=== PATIENT | male | born 1935 | race Caucasian/White ===

== ENCOUNTER → 2019-04-17 | Outpatient (CLI) | payer MEDICARE, OTHER ==
--- NOTE | 2019-04-17 20:00 | Diagnostic Imaging Report ---
EXAMINATION: Magnetic resonance imaging of the right knee without intravenous contrast DATE: April 17, 2019. COMPARISON: None. INDICATION: 83-year-old male, right knee pain. TECHNIQUE: Multiplanar, multisequence non contrast enhanced MR imaging was accomplished. FINDINGS: MENISCI: There is an oblique tear involving the anterior horn, body and posterior horn of the lateral meniscus. The medial meniscus is grossly intact. LIGAMENTS AND TENDONS: The anterior and posterior cruciate ligaments are intact. The medial collateral ligament is intact. The iliotibial band, mid third lateral capsular ligament, fibular collateral ligament, biceps femoris tendon and conjoined tendon are intact. The quadriceps tendon and patella ligament are intact. JOINT: There is abnormal signal within the cartilage of the medial aspect of the lateral patellar facet without definite overlying surface defect. There is a cartilage fissure involving the mid weightbearing portion of the medial femoral condyle. There is mild thinning of the lateral compartment cartilage. There is no knee joint effusion, prominent synovitis, or identified intra-articular body. BONE: There is unremarkable bone marrow signal. Specifically, negative for fracture, osteomyelitis, osteonecrosis, or marrow replacing process. BURSAE AND SOFT TISSUES: There is a multiloculated Spring's cyst. There is edema-like signal in the medial and lateral heads of gastrocnemius muscles. There is no fatty muscle atrophy. There is a multiloculated ganglion cyst adjacent to the posterior knee joint capsule at its medial aspect measuring approximately 8 x 7 by 8mm in size. IMPRESSION: 1. Oblique tear involving the entire lateral meniscus. 2. Intact medial meniscus. 3. Intact anterior and posterior cruciate ligaments. Additional ligaments and tendons are intact. 4. Tricompartmental mild osteoarthritis. No knee joint effusion. 5. Multiloculated Spring's cyst. 6. Low-level edema in the medial and lateral heads of gastrocnemius muscles which may potentially reflect low-grade muscle strains, early denervation related signal changes and/or myositis. 7. No acute fracture, bone contusion or evidence of osteonecrosis. Dictated on workstation # [id number]
== END ==
LOC: RAD 14:25
PROVIDERS: ATTEND Nurse Practitioner
DX: M23.241 Derangement of anterior horn of lateral meniscus due to old tear or injury, right knee (principal); M23.251 Derangement of posterior horn of lateral meniscus due to old tear or injury, right knee; M17.11 Unilateral primary osteoarthritis, right knee; M71.21 Synovial cyst of popliteal space [Baker], right knee
CPT/HCPCS: 73721

== ENCOUNTER → 2020-07-14 | Outpatient (CLI) | payer MEDICARE, OTHER ==
[~2020-07-14] MED LIST: CATHETER FLUSH 10 ML SYR IV PRN; HOLD METFORMIN - RECEIVED CONTRAST 20 ML VIAL IV SCH; IOHEXOL 350 MG/ML 100 ML (OMNIPAQUE 350) VIAL IV ONE; NS 100 ML (IVPB) BAG IV ONE
--- NOTE | 2020-07-14 15:18 | Diagnostic Imaging Report ---
EXAMINATION: CT angiography of the chest. TECHNIQUE: Contrast enhanced thin section helical images were obtained through the chest with intravenous contrast timed for the optimal opacification of the arterial structures per CTA protocol. Post-processing, reconstructions and interpretation of angiographic images of the vessels was performed. 3D MIP reconstructions were performed and reviewed. All CT scans use one or more of the following dose optimizing techniques: automated exposure control, MA and/or KvP adjustment based on a patient size and exam type, or iterative reconstruction. HISTORY: Aneurysm. COMPARISON: None available. FINDINGS: The aortic root is partially obscured by motion artifact but measures up to 4.4 cm in its largest dimension. Ascending aorta measures 4.0 cm in its maximal dimension. Proximal descending aorta measures 3.9 x 3.8 cm. There is no edema or pneumonia. No pleural effusion. No pneumothorax. No suspicious nodules. Lungs are hazy due to expiratory phase of imaging. Mucus is present in the trachea. There is no axillary or supraclavicular lymphadenopathy. There is no mediastinal lymphadenopathy. Heart size is normal. There are no coronary artery calcifications. No pericardial effusion. Limited views of the upper abdomen are unremarkable. There are no suspicious osseous lesions. IMPRESSION: 1. 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 Dictated by: Dictated on workstation # [id number]
== END ==
LOC: RAD 13:33
PROVIDERS: ATTEND Internal Medicine Cardiovascular Disease
DX: I71.2 Thoracic aortic aneurysm, without rupture (principal); I10 Essential (primary) hypertension
CPT/HCPCS: 71275

== ENCOUNTER 2021-02-05 13:30 | Emergency (ER) | payer MEDICARE, OTHER ==
[2021-02-05] MEDS ORDERED: NS IV 1000 ML 1,000 ML IV STA (13:48)
[2021-02-05] MEDS ORDERED: ONDANSETRON 4 MG/2 ML (SDV) Z0FRAN IVP STA (13:48)
[2021-02-05] MEDS ORDERED: hydrALAZINE (APESOLINE) 20 MG/ML VIAL IV STA (13:50)
--- NOTE | 2021-02-05 13:52 | ED General ---
General Chief Complaint: Cardiac/General Problems Stated Complaint: BP 189/116 | N/V Source of Information: Patient, Spouse History of Present Illness Date Seen by Provider: Feb 05, 2021 Time Seen by Provider: 13:31 Initial Comments 85-year-old male presenting from physical therapy where he developed nausea and vomiting. He states that he has episodes like this where he feels like it is motion sickness. He had taken a motion sickness [id number] pill prior to physical therapy but was still feeling bad. He had the therapist do a modified program form today and he was still symptoms when he tried to go back to the vehicle to leave. The physical therapist had checked his blood pressure and it was elevated so he advised the patient to come to the emergency department. The patient had nausea and vomiting on arrival to the ED but denied any headache, vision change, chest pain, abdominal pain, numbness or tingling in his extremities. He reports that he gets episodes of motion sickness with nausea vomiting frequently but this was the first time it was someplace that a medical professional was taking his blood pressure. Severity: Moderate Modifying Factors: worse with Movement Associated Systoms: No Chest Pain, No Cough, No Diaphoresis, No Fever/Chills, No Headaches, No Loss of Appetite, No Malaise; Nausea/Vomiting; No Rash, No Seizure, No Shortness of Air, No Syncope, No Weakness Allergies and Home Medications Allergies Coded Allergies: No Known Drug Allergies (Unverified , 02/05/21) Home Medications Ondansetron 4 Mg Tab.rapdis, 4 MG PO Q6H PRN for NAUSEA/VOMITING Prescribed by: CARMELO BARNARD on 02/05/21 0157 Patient Home Medication List Home Medication List Reviewed: Yes Review of Systems Review of Systems Constitutional: No chills, No diaphoresis, No dizziness, No fever, No malaise EENTM: no symptoms reported Respiratory: no symptoms reported Cardiovascular: no symptoms reported Gastrointestinal: see HPI Genitourinary: no symptoms reported Musculoskeletal: joint pain (chronic problems in the right knee that require PT and surgery) Skin: no symptoms reported Psychiatric/Neurological: Anxiety Hematologic/Lymphatic: No Symptoms Reported Past Yjoupmd-Xcpudn-Osbjxi Hx Past Med/Social Hx: Reviewed Nursing Past Med/Soc Hx Past Medical History Respiratory: No Cardiac: Yes High Cholesterol, Hypertension Physical Exam Vital Signs Vital Signs - First Documented 02/05/21 13:35 Temp 36.8 Pulse 100 Resp 18 B/P (MAP) 189/122 (144) Pulse Ox 92 O2 Delivery Room Air Capillary Refill : Height, Weight, BMI Height: '" Weight: lbs. oz. kg; BMI Method: General Appearance: WD/WN, Moderate Distress (vomiting on arrival) HEENT: PERRL/EOMI, Pharynx Normal Neck: Full Range of Motion, Normal Inspection, Non Tender, Supple Respiratory: Chest Non Tender, Lungs Clear, Normal Breath Sounds, No Accessory Muscle Use, No Respiratory Distress Cardiovascular: Regular Rate, Rhythm, Normal Peripheral Pulses Gastrointestinal: Normal Bowel Sounds, No Pulsatile Mass, Non Tender, Soft Rectal: Deferred Extremity: Normal Capillary Refill, Other (wearing knee brace on right knee) Neurologic/Psychiatric: Alert, Oriented x3, metal mockup maker II-XII Norm as Tested Skin: Normal Color, Warm/Dry Progress/Results/Core Measures Suspected Sepsis SIRS Temperature: Pulse: Respiratory Rate: Laboratory Tests 02/05/21 13:50: White Blood Count 7.6 Blood Pressure / Mean: Laboratory Tests 02/05/21 13:50: Creatinine 1.06, INR Comment 1.1, Platelet Count 187, Total Bilirubin 0.8 Results/Orders Lab Results Laboratory Tests Test 02/05/21 13:50 02/05/21 14:49 Range/Units White Blood Count 7.6 4.3-11.0 10^3/uL Red Blood Count 5.13 4.35-5.85 10^6/uL Hemoglobin 16.2 13.3-17.7 G/DL Hematocrit 47 40-54 % Mean Corpuscular Volume 92 80-99 FL Mean Corpuscular Hemoglobin 32 25-34 PG Mean Corpuscular Hemoglobin Concent 34 32-36 G/DL Red Cell Distribution Width 13.6 10.0-14.5 % Platelet Count 187 130-400 10^3/uL Mean Platelet Volume 11.5 H 7.4-10.4 FL Immature Granulocyte % (Auto) 1 % Neutrophils (%) (Auto) 63 42-75 % Lymphocytes (%) (Auto) 26 12-44 % Monocytes (%) (Auto) 9 0-12 % Eosinophils (%) (Auto) 1 0-10 % Basophils (%) (Auto) 1 0-10 % Neutrophils # (Auto) 4.8 1.8-7.8 X 10^3 Lymphocytes # (Auto) 2.0 1.0-4.0 X 10^3 Monocytes # (Auto) 0.7 0.0-1.0 X 10^3 Eosinophils # (Auto) 0.1 0.0-0.3 10^3/uL Basophils # (Auto) 0.0 0.0-0.1 10^3/uL Immature Granulocyte # (Auto) 0.0 0.0-0.1 10^3/uL Prothrombin Time 14.0 12.2-14.7 SEC INR Comment 1.1 0.8-1.4 Activated Partial Thromboplast Time 29 24-35 SEC Sodium Level 141 135-145 MMOL/L Potassium Level 3.8 3.6-5.0 MMOL/L Chloride Level 102 98-107 MMOL/L Carbon Dioxide Level 28 21-32 MMOL/L Anion Gap 11 5-14 MMOL/L Blood Urea Nitrogen 19 H 7-18 MG/DL Creatinine 1.06 0.60-1.30 MG/DL Estimat Glomerular Filtration Rate > 60 BUN/Creatinine Ratio 18 Glucose Level 93 70-105 MG/DL Calcium Level 9.8 8.5-10.1 MG/DL Corrected Calcium 9.6 8.5-10.1 MG/DL Magnesium Level 2.0 1.6-2.4 MG/DL Total Bilirubin 0.8 0.1-1.0 MG/DL Aspartate Amino Transf (AST/SGOT) 22 5-34 U/L Alanine Aminotransferase (ALT/SGPT) 13 0-55 U/L Alkaline Phosphatase 84 40-136 U/L Troponin I < 0.30 <0.30 NG/ML Pro-B-Type Natriuretic Peptide 63.9 <75.0 PG/ML Total Protein 7.2 6.4-8.2 GM/DL Albumin 4.3 3.2-4.5 GM/DL Lipase 38 8-78 U/L Urine Color YELLOW Urine Clarity CLEAR Urine pH 7.0 5-9 Urine Specific [place] 1.015 L 1.016-1.022 Urine Protein NEGATIVE NEGATIVE Urine Glucose (UA) NEGATIVE NEGATIVE Urine Ketones NEGATIVE NEGATIVE Urine Nitrite NEGATIVE NEGATIVE Urine Bilirubin NEGATIVE NEGATIVE Urine Urobilinogen 0.2 < = 1.0 MG/DL Urine Leukocyte Esterase NEGATIVE NEGATIVE Urine RBC (Auto) NEGATIVE NEGATIVE Urine RBC NONE /HPF Urine WBC NONE /HPF Urine Squamous Epithelial Cells NONE /HPF Urine Crystals NONE /LPF Urine Bacteria NEGATIVE /HPF Urine Casts NONE /LPF Urine Mucus NEGATIVE /LPF Urine Culture Indicated NO My Orders Orders - CARMELO BARNARD MD Cbc With Automated Diff (02/05/21 13:48) Magnesium (02/05/21 13:48) Ekg Tracing (02/05/21 13:48) Comprehensive Metabolic Panel (02/05/21 13:48) Protime With Inr (02/05/21 13:48) Partial Thromboplastin Time (02/05/21 13:48) O2 (02/05/21 13:48) Monitor-Rhythm Ecg Trace Only (02/05/21 13:48) Ed Iv/Invasive Line Start (02/05/21 13:48) Lipase (02/05/21 13:48) Troponin I Fs (02/05/21 13:48) Probnp Fs (02/05/21 13:48) Ns Iv 1000 Ml (Sodium Chloride 0.9%) (02/05/21 13:48) Ondansetron Injection (Zofran Injectio (02/05/21 13:48) Ua Culture If Indicated (02/05/21 13:50) Hydralazine Injection (Apresoline Inject (02/05/21 13:50) Vital Signs/I&O 02/05/21 02/05/21 13:35 16:10 Temp 36.8 36.8 Pulse 100 98 Resp 18 18 B/P (MAP) 189/122 (144) 149/81 (144) Pulse Ox 92 94 O2 Delivery Room Air Room Air Capillary Refill : Progress Note #1: Progress Note Placed on cardiac telemetry monitoring with his reported elevated blood pressure and nausea and vomiting. Initial monitor shows sinus rhythm with a heart rate in the 90s without ectopy. Obtain labs as well as electrocardiogram and cardiac enzymes. Give IV fluids for hydration, Zofran for nausea and vomiting, 10 mg of hydralazine to help with his blood pressure. Provided his labs look fine if he has response blood pressure coming down then will likely encourage him to follow-up through the clinic as he was not having any symptoms other than the nausea and vomiting when his pressure was elevated. He denied any headache, change in his vision, chest pain, shortness of breath, abdominal pain. Differential diagnosis uncontrolled hypertension, myocardial infarction, congestive heart failure, stress reaction Progress Note #2: Progress Note Cardiac telemetry monitoring continues to show sinus rhythm without ectopy. Has heart rate did improve with treatment in the ED. Even after the hydralazine had worn off he was continuing to do well with his blood pressure and symptoms. Updated patient and family about results. Advised to check back to the clinic or talk with his manager emergency when he sees them next week about his blood p ressure. They may want him on something more than just hydrochlorothiazide. However they may want him to take medicine for his motion sickness and nausea and vomiting on a more routine basis. Counseled on follow-up and return precautions. Prescribed a few Zofran for home so he had something ODT to help with nausea and vomiting if this recurs. ECG Initial ECG Impression Date: Feb 05, 2021 Initial ECG Impression Time: 14:10 Initial ECG Rate: 90 Initial ECG Rhythm: Normal Sinus Initial ECG Comparisson: No Previous ECG Available Comment Normal sinus rhythm with a heart rate of 90 bpm. DC interval 212 ms with a prolonged DC interval. Low voltage in the precordial leads. Borderline prolonged QT interval of 396 ms and a QTc interval of [address] elevation. There is no prior tracing available for comparison. Departure Impression Primary Impression: Elevated blood pressure reading Additional Impression: Nausea and vomiting in adult patient Disposition: 01 HOME, SELF-CARE Condition: Improved Departure-Patient Inst. Decision time for Depature: 15:56 Referrals: [facility]/MARCO ANTONIO (PCP) Primary Care Physician MARY WREN (Family) Primary Care Physician Patient Instructions: Nausea and Vomiting, Adult ED, High Blood Pressure (DC), Heart Healthy Diet Add. Discharge Instructions: Check back with clinic to see if they feel you need adjustment of your blood pressure medicine. If you continue to have episodes of nausea with vomiting then get rechecked sooner. Follow up with clinic about your episodes of motion sickness causing nausea and vomiting as this may be causing your elevated blood pressure or you may need other medicine for your blood pressure if it continues to run high All discharge instructions reviewed with patient and/or family. Voiced understanding. Scripts Ondansetron (Ondansetron Odt) 4 Mg Tab.rapdis 4 MG PO Q6H PRN for NAUSEA/VOMITING for 5 Days, #20 TAB 0 Refills Prov: CARMELO BARNARD MD 02/05/21 CARMELO BARNARD MD Feb 05, 2021 13:51
[2021-02-05 14:13] LABS: BASOPHILS % (AUTO) 1 % (0-10); EOSINOPHILS # (AUTO) 0.1 10^3/uL (0.0-0.3); EOSINOPHILS % (AUTO) 1 % (0-10); HEMATOCRIT 47 % (40-54); HEMOGLOBIN 16.2 G/DL (13.3-17.7); LYMPHOCYTES % (AUTO) 26 % (12-44); MEAN CORPUSCULAR HEMOGLOBIN 32 PG (25-34); MEAN CORPUSCULAR HGB CONC 34 G/DL (32-36); MEAN CORPUSCULAR VOLUME 92 FL (80-99); MEAN PLATELET VOLUME 11.5 FL (7.4-10.4); MONOCYTES # (AUTO) 0.7 X 10^3 (0.0-1.0); MONOCYTES % (AUTO) 9 % (0-12); NEUTROPHILS # (AUTO) 4.8 X 10^3 (1.8-7.8); NEUTROPHILS % (AUTO) 63 % (42-75); PLATELET COUNT 187 10^3/uL (130-400); WHITE BLOOD COUNT 7.6 10^3/uL (4.3-11.0)
[2021-02-05 14:14] LABS: INR 1.1 (0.8-1.4)
[2021-02-05 14:31] LABS: ALANINE AMINOTRANSFERASE 13 U/L (0-55); ALBUMIN 4.3 GM/DL (3.2-4.5); ALKALINE PHOSPHATASE 84 U/L (40-136); BILIRUBIN,TOTAL 0.8 MG/DL (0.1-1.0); BUN/CREATININE RATIO 18; CALCIUM 9.8 MG/DL (8.5-10.1); CARBON DIOXIDE 28 MMOL/L (21-32); CHLORIDE 102 MMOL/L (98-107); CREATININE SERUM 1.06 MG/DL (0.60-1.30); GFR ESTIMATED > 60; GLUCOSE 93 MG/DL (70-105); POTASSIUM 3.8 MMOL/L (3.6-5.0); SODIUM 141 MMOL/L (135-145); TOTAL PROTEIN 7.2 GM/DL (6.4-8.2)
[2021-02-05 14:38] LABS: LIPASE 38 U/L (8-78)
[2021-02-05 15:01] LABS: BACTERIA,URINE NEGATIVE /HPF; BILIRUBIN,URINE NEGATIVE (NEGATIVE); CLARITY,URINE CLEAR; COLOR,URINE YELLOW; GLUCOSE, URINE (UA) NEGATIVE (NEGATIVE); KETONES,URINE NEGATIVE (NEGATIVE); LEUKOCYTE ESTERASE ,URINE NEGATIVE (NEGATIVE); NITRITE,URINE NEGATIVE (NEGATIVE); PROTEIN,URINE NEGATIVE (NEGATIVE)
[2021-02-05] MEDS ORDERED: ONDA4TAB11 PO (15:57)
[2021-02-05 16:10] VITALS: BP 149/81
== END 2021-02-05 16:10 | disposition home or self-care (01) ==
LOC: EDUNIT# 13:30 → ER FS 13:31
DX: I10 Essential (primary) hypertension (principal); R11.2 Nausea with vomiting, unspecified
CPT/HCPCS: 36415; 80053; 81000; 83690; 83735; 83880; 84484; 85025; 85610; 85730; 93005; 93041

== ENCOUNTER → 2021-03-30 | Outpatient (CLI) | payer MEDICARE, OTHER ==
[~2021-03-30] MED LIST changes: -CATHETER FLUSH 10 ML SYR IV PRN; -HOLD METFORMIN - RECEIVED CONTRAST 20 ML VIAL IV SCH; -IOHEXOL 350 MG/ML 100 ML (OMNIPAQUE 350) VIAL IV ONE; -NS 100 ML (IVPB) BAG IV ONE; +ONDA4TAB11 PO
== END ==
LOC: LAB FS 13:00
PROVIDERS: ATTEND Orthopaedic Surgery
DX: Z01.812 Encounter for preprocedural laboratory examination (principal); Z20.822 Contact with and (suspected) exposure to COVID-19
CPT/HCPCS: 87635

== ENCOUNTER 2022-06-06 11:15 | Emergency (ER) | payer MEDICARE, OTHER ==
[~2022-06-06] VITALS: Ht 167 cm; Wt 90.0 kg
[2022-06-06] MEDS ORDERED: LIDOCAINE 1% INJ 50 ML (XYLOCAINE) VIAL IJ STA (11:30)
[2022-06-06 11:37] LABS: BASOPHILS % (AUTO) 0 % (0-10); EOSINOPHILS % (AUTO) 1 % (0-10); HEMATOCRIT 43 % (40-54); HEMOGLOBIN 14.7 g/dL (13.3-17.7); LYMPHOCYTES # (AUTO) 2.2 10^3/uL (1.0-4.0); LYMPHOCYTES % (AUTO) 31 % (12-44); MEAN CORPUSCULAR HEMOGLOBIN 32 pg (25-34); MEAN CORPUSCULAR HGB CONC 34 g/dL (32-36); MEAN CORPUSCULAR VOLUME 93 fL (80-99); MEAN PLATELET VOLUME 11.1 fL (9.0-12.2); MONOCYTES # (AUTO) 0.7 10^3/uL (0.0-1.0); MONOCYTES % (AUTO) 9 % (0-12); NEUTROPHILS # (AUTO) 4.2 10^3/uL (1.8-7.8); NEUTROPHILS % (AUTO) 58 % (42-75); PLATELET COUNT 173 10^3/uL (130-400); WHITE BLOOD COUNT 7.2 10^3/uL (4.3-11.0)
[2022-06-06 11:49] LABS: INR 1.1 (0.8-1.4); PROTHROMBIN TIME PATIENT 14.6 SEC (12.2-14.7)
--- NOTE | 2022-06-06 11:59 | ED Fall/Injury ---
General Chief Complaint: Trauma-Non Activation Stated Complaint: SYNCOPAL EPISODE Nursing Triage Note: PT REPORTS HE WAS BENT OVER IN THE BATHROOM AND WHEN HE STOOD UP HE GOT DIZZY AND FELL BACK AND HIT THE BACK LEFT SIDE OF HIS HEAD ON THE BATH TUB. DENIES LOC. 2.2 CM LACERATION ON THE LEFT POSTERIOR SIDE OF HEAD. Source: patient History of Present Illness Date Seen by Provider: Jun 06, 2022 Time Seen by Provider: 11:16 Initial Comments 86-year-old male presents by EMS from home. He states that he was bent over in the bathroom looking for something and when he stood up he stood up too quickly. He got dizzy and felt like he was going to pass out. He tried to hold himself up but ended up falling and hit his head against the bathtub. This caused a laceration to the back of his scalp. There was a lot of bleeding from the laceration and his was very worried so they called EMS. He had 1 episode of nausea and vomiting after hitting his head. He was given Zofran by EMS and states he is feeling better now. He denies any other injuries and has been able to get up and walk. He denies having any chest pain or shortness of breath, abdominal pain, cough, runny nose, drainage from his ears, change in vision Location Injury Occurred: PTS HOME IN BATHROOM Occurred: just prior to arrival Severity: mild Injuries/Pain Location: head (Left occipital scalp laceration) Context: fainted Loss of Consciousness: brief (seconds) Modifying Factors: Worse With Movement Associated Symptoms (Fall): No Abdominal Pain, No Chest Pain, No Confusion, No Dizziness; Headache (Mild pain to the left occipital scalp); No Lightheadedness, No Muscle Spasms; Nausea/Vomiting (Once); No Neck Pain, No Ringing in Ears, No Seizures, No Shortness of Air, No Slurred Speech, No Trouble Walking, No Vision Changes Allergies and Home Medications Allergies Coded Allergies: No Known Drug Allergies (Unverified , 02/05/21) Patient Home Medication List Home Medication List Reviewed: Yes Ondansetron (Ondansetron Odt) 4 Mg Tab.rapdis, 4 MG PO Q6H PRN for NAUSEA/VOMITING Prescribed by: CARMELO BARNARD on 02/05/21 3227 Review of Systems Review of Systems Constitutional: No chills, No fever Eyes: Denies Blurred Vision, Denies Drainage, Denies Decreased Acuity, Denies Photophobia, Denies Vision Changes Ears, Nose, Mouth, Throat: denies ear pain, denies ear discharge, denies nose pain, denies nose discharge, denies epistaxis, denies mouth pain, denies mouth swelling Respiratory: No cough, No dyspnea on exertion, No hemoptysis, No orthopnea, No phlegm, No short of breath Cardiovascular: No chest pain, No edema, No palpitations Gastrointestinal: see HPI Genitourinary: no symptoms reported Musculoskeletal: no symptoms reported Skin: see HPI Psychiatric/Neurological: See HPI Past Atoqepo-Syfskw-Wjugra Hx Patient Social History Tobacco Use?: No Use of E-Cig and/or Vaping dev: No Substance use?: No Alcohol Use?: No Pt feels they are or have been: No Immunizations Up To Date First/Initial COVID19 Vaccinat: n/a Second COVID19 Vaccination Luc: n/a Third COVID19 Vaccination Date: n/a Seasonal Allergies Seasonal Allergies: No Past Medical History Surgeries: Yes (Stent x1, Shoulder surgery) Cardiac, Orthopedic Respiratory: No Cardiac: Yes High Cholesterol, Hypertension Neurological: No Genitourinary: No Gastrointestinal: No Musculoskeletal: No Endocrine: No HEENT: No Cancer: No Psychosocial: No Integumentary: No Blood Disorders: No Physical Exam Vital Signs Vital Signs - First Documented Capillary Refill : Less Than 3 Seconds Height, Weight, BMI Height: '" Weight: lbs. oz. kg; 32.00 BMI Method: General Appearance: WD/WN, no apparent distress HEENT: PERRL/EOMI, normal ENT inspection, TMs normal, pharynx normal, other (Negative li sign, negative raccoon sign, negative CSF otorrhea, negative CSF rhinorrhea. 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 Then using 1% plain lidocaine the wound was infiltrated with 6 mL of anesthetic. A total of 5 deepthi were used to approximate the wound edges. Wound edges were well approximated. Bleeding was controlled. Patient tolerated procedure well without any immediate complication. Counseled on follow-up and return precautions. Advised to have deepthi out in 7 to 10 days. When the friend was being cleaned there was no obvious skull fracture or step-off seen. Progress/Results/Core Measures Results/Orders Lab Results Laboratory Tests Test 06/06/22 11:25 Range/Units White Blood Count 7.2 4.3-11.0 10^3/uL Red Blood Count 4.65 4.30-5.52 10^6/uL Hemoglobin 14.7 13.3-17.7 g/dL Hematocrit 43 40-54 % Mean Corpuscular Volume 93 80-99 fL Mean Corpuscular Hemoglobin 32 25-34 pg Mean Corpuscular Hemoglobin Concent 34 32-36 g/dL Red Cell Distribution Width 13.8 10.0-14.5 % Platelet Count 173 130-400 10^3/uL Mean Platelet Volume 11.1 9.0-12.2 fL Immature Granulocyte % (Auto) 0 % Neutrophils (%) (Auto) 58 42-75 % Lymphocytes (%) (Auto) 31 12-44 % Monocytes (%) (Auto) 9 0-12 % Eosinophils (%) (Auto) 1 0-10 % Basophils (%) (Auto) 0 0-10 % Neutrophils # (Auto) 4.2 1.8-7.8 10^3/uL Lymphocytes # (Auto) 2.2 1.0-4.0 10^3/uL Monocytes # (Auto) 0.7 0.0-1.0 10^3/uL Eosinophils # (Auto) 0.0 0.0-0.3 10^3/uL Basophils # (Auto) 0.0 0.0-0.1 10^3/uL Immature Granulocyte # (Auto) 0.0 0.0-0.1 10^3/uL Prothrombin Time 14.6 12.2-14.7 SEC INR Comment 1.1 0.8-1.4 Activated Partial Thromboplast Time 29 24-35 SEC Sodium Level 140 135-145 MMOL/L Potassium Level 3.9 3.6-5.0 MMOL/L Chloride Level 104 98-107 MMOL/L Carbon Dioxide Level 28 21-32 MMOL/L Anion Gap 8 5-14 MMOL/L Blood Urea Nitrogen 18 7-18 MG/DL Creatinine 1.16 0.60-1.30 MG/DL Estimat Glomerular Filtration Rate 62 BUN/Creatinine Ratio 16 Glucose Level 100 70-105 MG/DL Calcium Level 9.0 8.5-10.1 MG/DL Corrected Calcium 9.2 8.5-10.1 MG/DL Total Bilirubin 0.4 0.1-1.0 MG/DL Aspartate Amino Transf (AST/SGOT) 25 5-34 U/L Alanine Aminotransferase (ALT/SGPT) 24 0-55 U/L Alkaline Phosphatase 71 40-136 U/L Troponin I < 0.30 <0.30 NG/ML Pro-B-Type Natriuretic Peptide 41.6 <450.0 PG/ML Total Protein 6.2 L 6.4-8.2 GM/DL Albumin 3.7 3.2-4.5 GM/DL My Orders Orders - CARMELO BARNARD MD Cbc With Automated Diff (06/06/22 11:30) Ekg Tracing (06/06/22 11:30) Comprehensive Metabolic Panel (06/06/22 11:30) Protime With Inr (06/06/22 11:30) Partial Thromboplastin Time (06/06/22 11:30) O2 (06/06/22 11:30) Monitor-Rhythm Ecg Trace Only (06/06/22 11:30) Ed Iv/Invasive Line Start (06/06/22 11:30) Troponin I Fs (06/06/22 11:30) Probnp Fs (06/06/22 11:30) Ct Head/Cervical Spine Wo (06/06/22 11:30) Lidocaine 1% Inj 50 Ml (Xylocaine 1% Inj (06/06/22 11:30) Vital Signs/I&O 06/06/22 06/06/22 06/06/22 11:20 11:20 12:40 Temp 35.9 35.9 35.9 Pulse 66 66 72 Resp 16 16 16 B/P (MAP) 166/88 (114) 168/88 (114) 142/72 Pulse Ox 97 97 98 O2 Delivery Room Air Room Air Room Air Blood Pressure Mean: 114 Progress Progress Note #1: Progress Note Clean and repair laceration to the left occipital scalp. CT scan of the head and cervical spine to look for intracranial hemorrhage or skull fracture or cervical spine fracture. Check basic labs and cardiac enzymes as well as electrocardiogram to look for arrhythmia or other reasons for the syncope. Progress Note #2: Progress Note Patient tolerated repair of the laceration well without any immediate complication. The CT scan did not show any intracranial hemorrhage or C-spine fracture. Labs are stable without acute significant abnormality. Counseled on follow-up and return precautions. Advised to have the deepthi out in 7 to 10 days. Advised to change positions slowly to give his body time to adjust Initial ECG Impression Date: Jun 06, 2022 Initial ECG Impression Time: 11:40 Initial ECG Rate: 67 Initial ECG Rhythm: Normal Sinus Comment Normal sinus rhythm with a heart rate of 67 bpm with a first-degree AV block. OR interval 226 ms. Low QRS voltage in the precordial leads. No acute ST elevation. QT interval 422 ms with a QTc interval 437 ms. Diagnostic Imaging Diagonstic Imaging: CT Plain Films/CT/US/NM/MRI: c-spine, head Comments [facility], [place] NAME: [facility] REC#: [id number] PT STATUS: DEP ER : 1935 PHYSICIAN: CARMELO BARNARD MD ADMIT DATE: 06/06/22/ER FS Signed Date of Exam:06/06/22 CT HEAD/CERVICAL SPINE WO PROCEDURE: CT head and CT cervical spine without contrast. TECHNIQUE: Multiple contiguous axial images were obtained through the brain and cervical spine without the use of intravenous contrast. Sagittal and coronal reformations through the cervical spine were then performed. Auto Exposure Controls were utilized during the CT exam to meet ALARA standards for radiation dose reduction. INDICATION: Fall with head and neck injury. No prior studies are available for comparison. CT HEAD: Ventricles and sulci are prominent consistent with cerebral volume loss. There are significant periventricular low attenuation consistent with chronic microvascular ischemia. Punctate densities in the left frontal lobe have the appearance of small calcifications. No acute intra-axial or extra-axial hemorrhage is detected. There is no midline shift or sulcal effacement. Cisterns are patent. Visualized paranasal sinuses are clear apart from opacified right-sided posterior ethmoid air cell. There is some scalp deepthi in the left posterior parietal region with small amount of subcutaneous gas. No depressed calvarial fracture is seen. IMPRESSION: Chronic and senescent changes. No acute intracranial process is detected. CT CERVICAL SPINE: There is straightening of the normal cervical lordotic curvature. There is significant multilevel degenerative disc disease with disc space narrowing and marginal spurring at all levels. The prevertebral tissues are normal. The odontoid is intact. No fractures are identified. IMPRESSION: Cervical spondylosis. No acute bony abnormality is detected. Dictated by: Dictated on workstation # [id number] Dict: 06/06/22 1202 Trans: 06/06/22 1607 CV [id number] Interpreted by: MAT MARQUES MD Electronically signed by: MAT MARQUES MD 06/06/22 160 Reviewed: Reviewed by Me Departure Impression Primary Impression: Occipital scalp laceration Qualified Codes: S01.01XA - Laceration without foreign body of scalp, initial encounter Additional Impressions: Vasovagal syncope Minor closed head injury Disposition: 01 HOME, SELF-CARE Condition: Stable Departure-Patient Inst. Decision time for Depature: 12:28 Referrals: [facility]MARCO ANTONIO (PCP) Primary Care Physician MARY WREN (Family) Primary Care Physician Patient Instructions: Laceration Repair With [facility], Minor Head Injury, Adult ED, Fainting, Adult ED Add. Discharge Instructions: Stay well hydrated and drink plenty of fluids. Keep the wound on your scalp clean and dry for 24 hours then may wash with soap or shampoo and water. Do not soak the wound. May apply antibiotic ointment once or twice a day to help with healing and help prevent infection The deepthi can be removed in 7 to 10 days by returning here to the ED or with your PCP Make sure to change positions slowly and pause for a few seconds to let your body adjust before you start moving to let your blood pressure and pulse catch up and adjust with your change in position. All discharge instructions reviewed with patient and/or family. Voiced understanding. CARMELO BARNARD MD Jun 06, 2022 11:59
--- NOTE | 2022-06-06 12:10 | Diagnostic Imaging Report ---
PROCEDURE: CT head and CT cervical spine without contrast. TECHNIQUE: Multiple contiguous axial images were obtained through the brain and cervical spine without the use of intravenous contrast. Sagittal and coronal reformations through the cervical spine were then performed. Auto Exposure Controls were utilized during the CT exam to meet ALARA standards for radiation dose reduction. INDICATION: Fall with head and neck injury. No prior studies are available for comparison. CT HEAD: Ventricles and sulci are prominent consistent with cerebral volume loss. There are significant periventricular low attenuation consistent with chronic microvascular ischemia. Punctate densities in the left frontal lobe have the appearance of small calcifications. No acute intra-axial or extra-axial hemorrhage is detected. There is no midline shift or sulcal effacement. Cisterns are patent. Visualized paranasal sinuses are clear apart from opacified right-sided posterior ethmoid air cell. There is some scalp deepthi in the left posterior parietal region with small amount of subcutaneous gas. No depressed calvarial fracture is seen. IMPRESSION: Chronic and senescent changes. No acute intracranial process is detected. CT CERVICAL SPINE: There is straightening of the normal cervical lordotic curvature. There is significant multilevel degenerative disc disease with disc space narrowing and marginal spurring at all levels. The prevertebral tissues are normal. The odontoid is intact. No fractures are identified. IMPRESSION: Cervical spondylosis. No acute bony abnormality is detected. Dictated by: Dictated on workstation # [id number]
[2022-06-06 12:12] LABS: POTASSIUM 3.9 MMOL/L (3.6-5.0)
[2022-06-06 12:14] LABS: BILIRUBIN,TOTAL 0.4 MG/DL (0.1-1.0); CREATININE SERUM 1.16 MG/DL (0.60-1.30); TOTAL PROTEIN 6.2 GM/DL (6.4-8.2)
[2022-06-06 12:15] LABS: ALBUMIN 3.7 GM/DL (3.2-4.5)
[2022-06-06 12:40] VITALS: BP 142/72
== END 2022-06-06 12:41 | disposition home or self-care (01) ==
LOC: EDUNIT# 11:15 → ER FS 11:17
DX: S06.9X9A Unspecified intracranial injury with loss of consciousness of unspecified duration, initial encounter (principal); S01.01XA Laceration without foreign body of scalp, initial encounter; R55 Syncope and collapse; Z28.310 Unvaccinated for COVID-19; W18.30XA Fall on same level, unspecified, initial encounter; W22.8XXA Striking against or struck by other objects, initial encounter; Y92.091 Bathroom in other non-institutional residence as the place of occurrence of the external cause
CPT/HCPCS: 12001; 36415; 70450; 72125; 80053; 83880; 84484; 85025; 85610; 85730; 93005; 93041

== ENCOUNTER → 2022-07-19 | Outpatient (CLI) | payer MEDICARE, OTHER ==
--- NOTE | 2022-07-19 16:23 | Diagnostic Imaging Report ---
Clinical Indication: Patient with stenosis. Exam: MRI of the cervical spine performed without IV contrast. Sequences include sagittal T1, sagittal T2, sagittal stir, axial gradient echo sequence, and axial T2. Comparison: CT scan of the head and cervical spine without contrast dated 06/06/2022. Findings: There is no acute cervical spine fracture. There are mild to moderately hypertrophic spurs involving the cervical spine. There is Modic type II degenerative signal changes seen throughout the cervical spine. Limited visualization of posterior fossa is unremarkable. There is localized deformity of the cervical cord seen at the C3-C4, C4-C5, and C5-C6 levels due to disk disease. There is no abnormal cord signal. C1-C2: There are degenerative spurs involving the atlantoodontoid interval anteriorly. There is no significant central canal stenosis. C2-C3: There is moderate left facet arthropathy and mild right facet arthropathy. There is no significant central canal stenosis. C3-C4: There is diffuse disk bulge with moderate to severe loss of disk space height. There is mild bilateral facet arthropathy. There is severe central canal stenosis and moderate central canal stenosis. C4-C5: There is diffuse disk bulge with moderate to severe loss of disk space height. There are bilateral uncinate spurs. There is ligament flavum buckling. There is mild bilateral facet arthropathy. There is severe central canal stenosis and severe bilateral neural foramen narrowing. C5-C6: There is a diffuse disk bulge and moderate to severe loss of disk space height. There are bilateral uncinate spurs and posterior disk spurs. There is mild bilateral facet arthropathy. There is severe right neural foramen narrowing and moderate to severe left neural foramen narrowing. There is severe central canal stenosis. C6-C7: There is a diffuse disk bulge with moderate loss of disk space height. There is bilateral uncinate spurs and posterior disk spurs. There is moderate central canal stenosis. There is severe left neural foramen narrowing and moderate to severe right neural foramen narrowing. C7-T1: There is a diffuse disk bulge with moderate loss of disk space height with bilateral uncinate spurs. There is moderate left facet arthropathy and mild right facet arthropathy. There is severe right neural foramen narrowing and moderate to severe left neural foramen narrowing. There is mild central canal stenosis. IMPRESSION: There is severe multilevel cervical spine degenerative disk disease which is described above. Dictated by: Dictated on workstation # [id number]
--- NOTE | 2022-07-19 16:26 | Diagnostic Imaging Report ---
TECHNIQUE: Multiplanar, multisequence MRI of the thoracic spine was performed without contrast. REASON FOR EXAM: Back pain. Stenosis. COMPARISON: 07/14/2020. FINDINGS: No acute fracture or dislocation in the thoracic spine. There is a generalized heterogeneous appearance of the bone marrow. Scattered hemangiomas are seen in the thoracic spine. No suspicious focal osseous lesions. Alignment of the thoracic spine is anatomic. The intrinsic signal within the thoracic spinal cord is normal. No evidence of cord expansion. No epidural collections. Degenerative changes are seen in the thoracic spine with posterior disc bulges and facet hypertrophy. These are greatest at the T10-T11 level resulting in mild to moderate spinal canal narrowing and gbwjmcwb-[id number] bilateral foraminal stenosis. The paraspinal soft tissues are unremarkable. IMPRESSION: 1. No acute fracture or dislocation in the thoracic spine. 2. Degenerative changes in the thoracic spine, greatest at T10-T11. 3. Generalized heterogeneous appearance of the bone marrow. No suspicious focal osseous lesions. Dictated by: Dictated on workstation # [id number]
--- NOTE | 2022-07-19 17:37 | Diagnostic Imaging Report ---
PROCEDURE: MRI lumbar spine without contrast. TECHNIQUE: Multiplanar, multisequence MRI of the lumbar spine was performed without contrast. INDICATION: Low back pain. Spinal stenosis. COMPARISON: None. FINDINGS: Five lumbar-type vertebral bodies are visualized with the last well-formed disc space designated L5-S1. No acute fracture or dislocation is seen in the lumbar spine. Alignment is anatomic. Vertebral body heights and disc spaces are well-maintained. There is a heterogeneous bone marrow signal throughout the lumbar spine. Modic type I endplate degenerative changes are present at the L2-L3 level. Modic type II endplate degenerative changes are present at the T12-L1 and L5-S1 levels. No suspicious focal osseous lesions. The conus terminates at the L1 level. No masses are seen associated with the conus or nerve roots of the cauda equina. No epidural collections are identified. Multilevel degenerative changes are seen in the lumbar spine with disc bulges, facet hypertrophy, and buckling of the ligamentum flavum. T12-L1: Broad-based disc bulge and facet hypertrophy result in mild spinal canal narrowing and moderate bilateral foraminal stenosis. L1-L2: Facet hypertrophy and buckling of the ligamentum flavum result in no significant spinal canal narrowing and moderate bilateral foraminal narrowing. L2-L3: Facet hypertrophy and buckling of the ligamentum flavum result in no significant spinal canal narrowing and moderate right and severe left foraminal stenosis. L3-L4: Broad-based disc bulge, facet hypertrophy, and buckling of the ligamentum flavum result in mild spinal canal narrowing and moderate bilateral foraminal stenosis. L4-L5: Broad-based disc bulge, facet hypertrophy, and buckling of the ligamentum flavum result in mild spinal canal narrowing and severe right and ebzjbuxb-ze-iivsyd left foraminal stenosis. L5-S1: Broad-based disc bulge, facet hypertrophy, and buckling of the ligamentum flavum result in mild spinal canal narrowing and kswlhprw-nn-jjdueo bilateral foraminal stenosis. Paravertebral soft tissues are unremarkable. IMPRESSION: 1. No acute fracture or dislocation in the lumbar spine. 2. Multilevel degenerative changes in the lumbar spine with high-grade bilateral foraminal stenosis throughout the lumbar spine. 3. Modic type I endplate degenerative changes at the L2-L3 level with Modic type II endplate degenerative changes at T12-L1 and L5-S1. Dictated by: Dictated on workstation # [id number]
== END ==
LOC: RAD 11:45
PROVIDERS: ATTEND Orthopaedic Surgery Orthopaedic Surgery of the Spine
DX: M48.061 Spinal stenosis, lumbar region without neurogenic claudication (principal); M47.816 Spondylosis without myelopathy or radiculopathy, lumbar region; M47.815 Spondylosis without myelopathy or radiculopathy, thoracolumbar region; M47.817 Spondylosis without myelopathy or radiculopathy, lumbosacral region; M47.814 Spondylosis without myelopathy or radiculopathy, thoracic region; M48.04 Spinal stenosis, thoracic region; M50.30 Other cervical disc degeneration, unspecified cervical region; M46.02 Spinal enthesopathy, cervical region; M47.812 Spondylosis without myelopathy or radiculopathy, cervical region; M50.21 Other cervical disc displacement, high cervical region; M48.02 Spinal stenosis, cervical region
CPT/HCPCS: 72141; 72146; 72148

== ENCOUNTER 2023-05-06 21:30 | Observation (INO) | payer MEDICARE, OTHER ==
[~2023-05-06] VITALS: Ht 167.7 cm; Wt 90.7 kg
[2023-05-06] MEDS ORDERED: NS IV 1000 ML 1,000 ML IV STA (21:35)
--- NOTE | 2023-05-06 21:41 | ED General ---
General Stated Complaint: fall Source of Information: Patient, EMS History of Present Illness Date Seen by Provider: May 06, 2023 Time Seen by Provider: 21:30 Initial Comments 87-year-old male presenting with complaints of weakness in his legs. He felt like he was too weak to stand and walk. He does use a walker but even with that he felt like his legs were too weak to hold him up. He denies hitting his head or losing consciousness. He states he did slide to the ground earlier and has a bruise to his right arm. He denies having any pain. He denies having any burning with urination. He admits that he does not drink much fluid and probably needs to be better hydrated. He denies fever, chills, chest pain, cough, nausea, vomiting, shortness of breath, headache, numbness or tingling in his arms or legs. He felt this weakness came on this evening around 8 PM Timing/Duration: 1-3 Hours Severity: Moderate Modifying Factors: worse with Movement (Feeling too weak to stand and walk) Associated Systoms: No Chest Pain, No Cough, No Diaphoresis, No Fever/Chills, No Headaches, No Loss of Appetite, No Malaise, No Nausea/Vomiting, No Rash, No Seizure, No Shortness of Air, No Syncope; Weakness ([place] like his legs were too weak to hold him up but has no difficulty moving his legs laying in the bed) Allergies and Home Medications Allergies Coded Allergies: No Known Drug Allergies (Unverified , 02/05/21) Patient Home Medication List Home Medication List Reviewed: Yes Ondansetron (Ondansetron Odt) 4 Mg Tab.rapdis, 4 MG PO Q6H PRN for NAUSEA/VOMITING Prescribed by: CARMELO BARNARD on 02/05/21 [id number] Review of Systems Review of Systems Constitutional: No chills, No fever; weakness (In his legs when he tries to stand or walk) EENTM: no symptoms reported Respiratory: see HPI; No short of breath Cardiovascular: No chest pain Gastrointestinal: see HPI; No abdominal pain, No nausea, No vomiting Genitourinary: No dysuria Musculoskeletal: No back pain Skin: No rash Psychiatric/Neurological: Denies Headache, Denies Numbness, Denies Weakness Hematologic/Lymphatic: Denies Blood Clots Past Wasjgba-Vuiqkd-Xwcjae Hx Immunizations Up To Date First/Initial COVID19 Vaccinat: n/a Second COVID19 Vaccination Luc: n/a Third COVID19 Vaccination Date: n/a Seasonal Allergies Seasonal Allergies: No Past Medical History Surgery/Hospitalization HX: Hypertension Surgeries: Yes (Stent x1, Shoulder surgery) Cardiac, Orthopedic Respiratory: No Cardiac: Yes High Cholesterol, Hypertension Neurological: No Genitourinary: No Gastrointestinal: No Musculoskeletal: No Endocrine: No HEENT: No Cancer: No Psychosocial: No Integumentary: No Blood Disorders: No Physical Exam Vital Signs Vital Signs - First Documented 05/06/23 21:30 Temp 36.7 Pulse 93 Resp 20 B/P (MAP) 171/101 (124) Pulse Ox 96 O2 Delivery Room Air Capillary Refill : Height, Weight, BMI Height: '" Weight: lbs. oz. kg; 32.00 BMI Method: General Appearance: No Apparent Distress, WD/WN HEENT: PERRL/EOMI, Normal ENT Inspection, Pharynx Normal Neck: Full Range of Motion, Normal Inspection, Non Tender, Supple Respiratory: Chest Non Tender, Lungs Clear, Normal Breath Sounds, No Accessory Muscle Use, No Respiratory Distress Cardiovascular: Regular Rate, Rhythm, Normal Peripheral Pulses Gastrointestinal: Normal Bowel Sounds, No Pulsatile Mass, Non Tender, Soft Rectal: Deferred Back: No CVA Tenderness, No Vertebral Tenderness Extremity: Normal Capillary Refill, Normal Inspection, Normal Range of Motion, Non Tender, No Calf Tenderness, No Pedal Edema Neurologic/Psychiatric: Alert, Oriented x3, No Motor/Sensory Deficits, Normal Mood/Affect, bellmaker II-XII Norm as Tested Skin: Normal Color, Warm/Dry Progress/Results/Core Measures Suspected Sepsis SIRS Temperature: Pulse: Respiratory Rate: Laboratory Tests 05/06/23 21:38: White Blood Count 10.0 Blood Pressure / Mean: Laboratory Tests 05/06/23 21:38: Creatinine 1.33H, INR Comment 1.0, Platelet Count 182, Total Bilirubin 0.4 Results/Orders Lab Results Laboratory Tests Test 05/06/23 21:38 05/06/23 22:30 Range/Units White Blood Count 10.0 4.3-11.0 10^3/uL Red Blood Count 4.80 4.30-5.52 10^6/uL Hemoglobin 15.2 13.3-17.7 g/dL Hematocrit 46 40-54 % Mean Corpuscular Volume 96 80-99 fL Mean Corpuscular Hemoglobin 32 25-34 pg Mean Corpuscular Hemoglobin Concent 33 32-36 g/dL Red Cell Distribution Width 14.1 10.0-14.5 % Platelet Count 182 130-400 10^3/uL Mean Platelet Volume 11.7 9.0-12.2 fL Immature Granulocyte % (Auto) 0 % Neutrophils (%) (Auto) 77 H 42-75 % Lymphocytes (%) (Auto) 15 12-44 % Monocytes (%) (Auto) 7 0-12 % Eosinophils (%) (Auto) 0 0-10 % Basophils (%) (Auto) 0 0-10 % Neutrophils # (Auto) 7.7 1.8-7.8 10^3/uL Lymphocytes # (Auto) 1.5 1.0-4.0 10^3/uL Monocytes # (Auto) 0.7 0.0-1.0 10^3/uL Eosinophils # (Auto) 0.0 0.0-0.3 10^3/uL Basophils # (Auto) 0.0 0.0-0.1 10^3/uL Immature Granulocyte # (Auto) 0.0 0.0-0.1 10^3/uL Prothrombin Time 13.8 12.2-14.7 SEC INR Comment 1.0 0.8-1.4 Activated Partial Thromboplast Time 29 24-35 SEC Sodium Level 141 135-145 MMOL/L Potassium Level 4.0 3.6-5.0 MMOL/L Chloride Level 103 98-107 MMOL/L Carbon Dioxide Level 27 21-32 MMOL/L Anion Gap 11 5-14 MMOL/L Blood Urea Nitrogen 20 H 7-18 MG/DL Creatinine 1.33 H 0.60-1.30 MG/DL Estimat Glomerular Filtration Rate 52 BUN/Creatinine Ratio 15 Glucose Level 110 H 70-105 MG/DL Calcium Level 10.0 8.5-10.1 MG/DL Corrected Calcium 10.2 H 8.5-10.1 MG/DL Magnesium Level 2.2 1.6-2.4 MG/DL Total Bilirubin 0.4 0.1-1.0 MG/DL Aspartate Amino Transf (AST/SGOT) 23 5-34 U/L Alanine Aminotransferase (ALT/SGPT) 18 0-55 U/L Alkaline Phosphatase 82 40-136 U/L Troponin I < 0.30 <0.30 NG/ML Pro-B-Type Natriuretic Peptide 59.8 <450.0 PG/ML Total Protein 6.5 6.4-8.2 GM/DL Albumin 3.8 3.2-4.5 GM/DL Urine Color YELLOW Urine Clarity CLEAR Urine pH 7.5 5-9 Urine Specific [place] 1.010 L 1.016-1.022 Urine Protein NEGATIVE NEGATIVE Urine Glucose (UA) NEGATIVE NEGATIVE Urine Ketones NEGATIVE NEGATIVE Urine Nitrite NEGATIVE NEGATIVE Urine Bilirubin NEGATIVE NEGATIVE Urine Urobilinogen 0.2 < = 1.0 MG/DL Urine Leukocyte Esterase NEGATIVE NEGATIVE Urine RBC (Auto) TRACE-I H NEGATIVE Urine RBC 2-5 H /HPF Urine WBC 0-2 /HPF Urine Crystals PRESENT H /LPF Urine Calcium Oxalate Crystals FEW H /LPF Urine Bacteria FEW H /HPF Urine Casts NONE /LPF Urine Mucus MODERATE H /LPF Urine Culture Indicated NO My Orders Orders - CARMELO BARNARD MD Cbc With Automated Diff (05/06/23 21:35) Magnesium (05/06/23 21:35) Ekg Tracing (05/06/23 21:35) Comprehensive Metabolic Panel (05/06/23 21:35) Protime With Inr (05/06/23 21:35) Partial Thromboplastin Time (05/06/23 21:35) Monitor-Rhythm Ecg Trace Only (05/06/23 21:35) Ed Iv/Invasive Line Start (05/06/23 21:35) Troponin I Fs (05/06/23 21:35) Probnp Fs (05/06/23 21:35) Ns Iv 1000 Ml (Sodium Chloride 0.9%) (05/06/23 21:35) Ua Culture If Indicated (05/06/23 21:35) Hydralazine Injection (Apresoline Inject (05/06/23 23:02) Ed Admission (Communication) (05/07/23 03:21) Vital Signs/I&O 05/06/23 05/07/23 21:30 02:15 Temp 36.7 Pulse 93 99 Resp 20 20 B/P (MAP) 171/101 (124) 157/83 Pulse Ox 96 97 O2 Delivery Room Air Room Air 05/07/23 00:00 Intake Total 1000 ml Balance 1000 ml Capillary Refill : Progress Note #1: Progress Note Potential diagnosis of dehydration, electrolyte imbalance, UTI, myocardial infarction, general muscle weakness. Obtain peripheral IV access and send labs for complete blood count, comp rehensive metabolic profile, coagulation factors, magnesium, urinalysis. Administer normal saline 1 L IV fluid bolus for hydration. His blood pressure was elevated initially at 171/101. He denies having headache, change in vision, chest pain, nausea, vomiting, shortness of breath with this. We will continue to monitor his blood pressure while he is in the ED. Progress Note #2: Time: 22:56 Progress Note On review of his labs his complete blood count shows a normal white blood cell count of 10, hemoglobin 15.2. His comprehensive metabolic profile showed sodium of 141, potassium of 4, BUN of 20, creatinine 1.33, glucose slightly elevated to 110. His magnesium was upper limit of normal at 2.2. His troponin was normal less than 0.3. proBNP was also normal at 59.8. His coagulation factors were not elevated to indicate a coagulopathy. His urinalysis showed a specific gravity of 1.010 and he had no nitrites or leukocyte esterase but he did have urine crystals calcium oxalate crystals so he might have been slightly dehydrated. His blood pressure continues to be elevated at 210/100. He is not having any other symptoms from the high blood pressure. Will add on a dose of hydralazine to see if could lower his blood pressure some. We will try to have the patient get up to walk with a walker and see if his legs are feeling any stronger after getting the liter of normal saline for hydration. Progress Note #3: Time: 23:41 Progress Note Discussed with Dr. Cheema, [facility] hospitalist, about the patient's presentation and his vital signs showing the hypertension. He did have general weakness in his legs with standing but if he was laying in the bed he had normal range of motion and was kicking his legs up in the air on the bed. He denies any recent fall to injure his back. He has no headache or head injury. He denies chest pain, nausea, vomiting, pain with urination. His labs did not show any acute significant abnormality on his blood count, electrolytes. He had no pain with urination and did not show definite signs of infection. However despite IV fluid hydration he was still weak with walking and felt that he was more unstable than usual. He was accepted for an observation admission for his h igh blood pressure and leg weakness with walking. Patient's blood pressure was down to 138/78 prior to transfer by EMS to [facility] ECG Initial ECG Impression Date: May 06, 2023 Initial ECG Impression Time: 22:31 Initial ECG Rate: 85 Initial ECG Rhythm: Normal Sinus Initial ECG Comparisson: Unchanged (06/06/2022) Comment My personal interpretation and review his electrocardiogram shows a sinus rhythm with first-degree AV block and a heart rate of 85 bpm. MD interval 210 ms. Right ventricular conduction delay. QT interval 378 ms with a QTc interval 420 ms. He has no acute ST elevation. Overall this appears similar to tracing from June 06, 2022. Departure Communication (Admissions) Time/Spoke to Admitting Phy: 23:[address] Cheema, [facility] hospitalist, about the patient's presentation and his vital signs showing the hypertension. He did have general weakness in his legs with standing but if he was laying in the bed he had normal range of motion and was kicking his legs up in the air on the bed. He denies any recent fall to injure his back. He has no headache or head injury. He denies chest pain, nausea, vomiting, pain with urination. His labs did not show any acute significant abnormality on his blood count, electrolytes. He had no pain with urination and did not show definite signs of infection. However despite IV fluid hydration he was still weak with walking and felt that he was more unstable than usual. He was accepted for an observation admission for his h igh blood pressure and leg weakness with walking. Impression Primary Impression: Elevated blood pressure reading with diagnosis of hypertension Additional Impressions: Leg weakness Qualified Codes: R29.898 - Other symptoms and signs involving the musculoskeletal system Dehydration Disposition: 30 STILL A PATIENT Condition: Stable Admissions Decision to Admit Reason: Admit from ER (General) Decision to Admit/Date: May 06, 2023 Time/Decision to Admit Time: 23:41 Departure-Patient Inst. Referrals: ELIUD OLMOS MD (PCP/Family) Primary Care Physician CARMELO BARNARD MD May 06, 2023 21:41
[2023-05-06 22:09] LABS: BASOPHILS % (AUTO) 0 % (0-10); EOSINOPHILS % (AUTO) 0 % (0-10); HEMATOCRIT 46 % (40-54); HEMOGLOBIN 15.2 g/dL (13.3-17.7); LYMPHOCYTES # (AUTO) 1.5 10^3/uL (1.0-4.0); LYMPHOCYTES % (AUTO) 15 % (12-44); MEAN CORPUSCULAR HEMOGLOBIN 32 pg (25-34); MEAN CORPUSCULAR HGB CONC 33 g/dL (32-36); MEAN CORPUSCULAR VOLUME 96 fL (80-99); MEAN PLATELET VOLUME 11.7 fL (9.0-12.2); MONOCYTES # (AUTO) 0.7 10^3/uL (0.0-1.0); MONOCYTES % (AUTO) 7 % (0-12); NEUTROPHILS # (AUTO) 7.7 10^3/uL (1.8-7.8); NEUTROPHILS % (AUTO) 77 % (42-75); PLATELET COUNT 182 10^3/uL (130-400)
[2023-05-06 22:20] LABS: PROTHROMBIN TIME PATIENT 13.8 SEC (12.2-14.7)
[2023-05-06 22:33] LABS: BILIRUBIN,URINE NEGATIVE (NEGATIVE); CLARITY,URINE CLEAR; COLOR,URINE YELLOW; GLUCOSE, URINE (UA) NEGATIVE (NEGATIVE); KETONES,URINE NEGATIVE (NEGATIVE); LEUKOCYTE ESTERASE ,URINE NEGATIVE (NEGATIVE); NITRITE,URINE NEGATIVE (NEGATIVE); PH,URINE 7.5 (5-9); PROTEIN,URINE NEGATIVE (NEGATIVE)
[2023-05-06 22:34] LABS: ALANINE AMINOTRANSFERASE 18 U/L (0-55); ALBUMIN 3.8 GM/DL (3.2-4.5); ALKALINE PHOSPHATASE 82 U/L (40-136); BILIRUBIN,TOTAL 0.4 MG/DL (0.1-1.0); BUN/CREATININE RATIO 15; CARBON DIOXIDE 27 MMOL/L (21-32); CHLORIDE 103 MMOL/L (98-107); CREATININE SERUM 1.33 MG/DL (0.60-1.30); GFR ESTIMATED 52; GLUCOSE 110 MG/DL (70-105); MAGNESIUM 2.2 MG/DL (1.6-2.4); SODIUM 141 MMOL/L (135-145); TOTAL PROTEIN 6.5 GM/DL (6.4-8.2)
[2023-05-06 22:38] LABS: BACTERIA,URINE FEW /HPF; CALCIUM OXALATE CRYSTALS,UR FEW /LPF; WBC,URINE 0-2 /HPF
[2023-05-06] MEDS ORDERED: hydrALAZINE (APESOLINE) 20 MG/ML VIAL IV STA (23:02)
[2023-05-07] VITALS (7 sets, daily range): BP systolic 134–174; BP diastolic 67–108
[2023-05-07] MEDS: cloNIDine 0.1 MG (CATAPRES) TAB PO PRN (03:59)
[2023-05-07] MEDS ORDERED: hydrALAZINE (APESOLINE) 20 MG/ML VIAL IV PRN (04:00)
[2023-05-07] MEDS ORDERED: ONDANSETRON 4 MG/2 ML (SDV) Z0FRAN IV PRN ×2 (04:00→07:15)
[2023-05-07] MEDS ORDERED: ACETAMINOPHEN 325 MG TABLET PO PRN ×2 (04:00→07:15)
[2023-05-07] MEDS ORDERED: NS IV 1000 ML 1,000 ML IV SCH (04:00)
[2023-05-07 05:34] LABS: BASOPHILS % (AUTO) 0 % (0-10); EOSINOPHILS # (AUTO) 0.1 10^3/uL (0.0-0.3); EOSINOPHILS % (AUTO) 1 % (0-10); HEMATOCRIT 42 % (40-54); HEMOGLOBIN 14.1 g/dL (13.3-17.7); LYMPHOCYTES # (AUTO) 1.2 10^3/uL (1.0-4.0); LYMPHOCYTES % (AUTO) 17 % (12-44); MEAN CORPUSCULAR HEMOGLOBIN 32 pg (25-34); MEAN CORPUSCULAR HGB CONC 34 g/dL (32-36); MEAN CORPUSCULAR VOLUME 95 fL (80-99); MEAN PLATELET VOLUME 12.2 fL (9.0-12.2); MONOCYTES # (AUTO) 0.8 10^3/uL (0.0-1.0); MONOCYTES % (AUTO) 11 % (0-12); NEUTROPHILS # (AUTO) 5.3 10^3/uL (1.8-7.8); NEUTROPHILS % (AUTO) 71 % (42-75); PLATELET COUNT 174 10^3/uL (130-400); WHITE BLOOD COUNT 7.4 10^3/uL (4.3-11.0)
[2023-05-07 05:52] LABS: CALCIUM 8.6 MG/DL (8.5-10.1); CREATININE SERUM 0.94 MG/DL (0.60-1.30); POTASSIUM 3.3 MMOL/L (3.6-5.0)
[2023-05-07] MEDS ORDERED: diphenhydrAMINE 25 MG TAB (BENADRYL) PO PRN (07:15)
[2023-05-07] MEDS ORDERED: CALCIUM CARBONATE 500 MG (TUMS) TAB.CHEW PO PRN (07:15)
[2023-05-07] MEDS ORDERED: morphine INJ 4 MG/ML 1 ML (VIAL/SYRINGE) IV PRN (07:15)
[2023-05-07] MEDS ORDERED: MILK OF MAGNESIA 400 MG/5 ML 30 ML UDC PO PRN (07:15)
[2023-05-07] MEDS ORDERED: polyethylene glycoL POWDER 17 GM (MIRALAX) PACK PO PRN (07:15)
[2023-05-07] MEDS ORDERED: ANTACID SUSP 30 ML UDC (MYLANTA) PO PRN (07:15)
[2023-05-07] MEDS ORDERED: diphenhydrAMINE 50 MG/ML INJ (BENADRYL) IVP PRN (07:15)
[2023-05-07] MEDS ORDERED: ONDANSETRON 4 MG (ZOFRAN) ORAL DISSOLVE TAB PO PRN (07:15)
[2023-05-07] MEDS ORDERED: BISACODYL 10 MG SUPP (DULCOLAX) PR PRN (07:15)
[2023-05-07] MEDS ORDERED: MELATONIN 3 MG TABLET PO PRN (07:15)
[2023-05-07] MEDS ORDERED: LACTULOSE SYRUP 10GM/15ML (ENULOSE) 30ML UDC PO PRN (07:15)
--- NOTE | 2023-05-07 07:15 | History & Physical ---
History of Present Illness HPI/Chief Complaint CC: Severe leg weakness with multiple falls at home HPI: This is an 87yoWM clinic patient of Dr Olea who has a h/o HTN and HLP who presented to the [facility] ER with severe leg weakness and unable to ambulate and multiple recent falls. He reports he has had a lot of falls in the past couple of years and now walks with a walker continuously. at bedside. No pain reported. Source: patient Exam Limitations: no limitations Date Seen 05/07/23 Time Seen by a Provider: 11:00 Attending Physician Chaz Olea MD PCP Admitting Physician: Gemma Cheema DO Attending Physician: Gemma Cheema DO Referring Physician Date of Admission May 07, 2023 at 03:00 Home Medications & Allergies Home Medications Reviewed patient Home Medication Reconciliation performed by pharmacy medication reconciliations pathology lab technician and/or nursing. Patients Allergies have been reviewed. Allergies Allergies Coded Allergies No Known Drug Allergies (Unverified02/05/21) Past Qghuerx-Fplkcr-Oexhlx Hx Past Med/Social Hx: Reviewed Nursing Past Med/Soc Hx, Reviewed and Corrections made Patient Social History Marrital Status: Employed/Student: retired Alcohol Use: Denies Use Smoking Status: Never a Smoker 2nd Hand Smoke Exposure: No Recent Hopitalizations: No Seasonal Allergies Seasonal Allergies: No Past Medical History Surgeries: Cardiac, Orthopedic Cardiac: High Cholesterol, Hypertension History of Blood Disorders: No Review of Systems Constitutional: see HPI, dizziness, malaise, weakness EENTM: no symptoms reported Respiratory: no symptoms reported Cardiovascular: no symptoms reported Gastrointestinal: no symptoms reported Genitourinary: no symptoms reported Musculoskeletal: muscle pain, muscle stiffness, muscle cramps, muscle weakness Skin: no symptoms reported Psychiatric/Neurological: No Symptoms Reported All Other Systems Reviewed Negative Unless Noted: Yes Physical Exam Physical Exam Vital Signs Vital Signs - First Documented 05/06/23 21:30 Temp 36.7 Pulse 93 Resp 20 B/P (MAP) 171/101 (124) Pulse Ox 96 O2 Delivery Room Air Capillary Refill : Less Than 3 Seconds Height, Weight, BMI Height: '" Weight: lbs. oz. kg; 32.25 BMI Method: General Appearance: No Apparent Distress, WD/WN HEENT: PERRL/EOMI, Normal ENT Inspection, Pharynx Normal Neck: Full Range of Motion, Normal Inspection, Non Tender, Supple Respiratory: Chest Non Tender, Lungs Clear, Normal Breath Sounds, No Accessory Muscle Use, No Respiratory Distress Cardiovascular: Regular Rate, Rhythm, Normal Peripheral Pulses Gastrointestinal: Normal Bowel Sounds, No Pulsatile Mass, Non Tender, Soft Rectal: Deferred Back: No CVA Tenderness, No Vertebral Tenderness Extremity: Normal Capillary Refill, Normal Inspection, Normal Range of Motion, Non Tender, No Calf Tenderness, No Pedal Edema Neurologic/Psychiatric: Alert, Oriented x3, No Motor/Sensory Deficits, Normal Mood/Affect, review engineer II-XII Norm as Tested Skin: Normal Color, Warm/Dry Results Results/Procedures Labs Laboratory Tests 05/06/23 21:38 05/07/23 05:08 Patient resulted labs reviewed. Assessment/Plan Admission Diagnosis Assessment: Severe leg muscle weakness unable to ambulate Multiple falls HTN HLP Advanced age Edema Plan: HLIVF Home meds PT OT tomorrow Check for inflammatory myopathies Admission Status: Observation Clinical Quality Measures AMI/AHF: ASA po Prior to arrival: Yes (81) GEMMA CHEEMA DO May 07, 2023 07:15
[2023-05-07] MEDS: SENNOSIDES 8.6 MG (SENOKOT) TAB PO SCH ×2 (09:00→20:08)
[2023-05-07] MEDS: ENOXAPARIN 40 MG/0.4 ML (LOVENOX) SYR SC SCH (09:58)
[2023-05-07] MEDS: amLODIPine 5 MG (NORVASC) TAB PO SCH (09:58)
[2023-05-07] MEDS: DOCUSATE SODIUM 100 MG (COLACE) CAP PO SCH ×2 (09:59→20:08)
[2023-05-07] MEDS ORDERED: VALS40TA9 PO (10:06)
[2023-05-07] MEDS ORDERED: ROSU20TA32 PO (10:07)
[2023-05-07] MEDS ORDERED: FURO20TA4 PO (10:07)
[2023-05-07] MEDS ORDERED: RT-ALBUTEROL SULF 2.5 MG/3 ML PRE-MIX VIAL INH PRN (11:30)
[2023-05-07] MEDS: VALSARTAN 80 MG (DIOVAN) TAB PO SCH (20:09)
[2023-05-08] MEDS: cloNIDine 0.1 MG (CATAPRES) TAB PO PRN (00:12)
[2023-05-08 04:06] VITALS: BP 135/75
[2023-05-08 05:39] LABS: BASOPHILS % (AUTO) 1 % (0-10); EOSINOPHILS # (AUTO) 0.1 10^3/uL (0.0-0.3); EOSINOPHILS % (AUTO) 2 % (0-10); HEMATOCRIT 42 % (40-54); HEMOGLOBIN 13.9 g/dL (13.3-17.7); LYMPHOCYTES # (AUTO) 1.4 10^3/uL (1.0-4.0); LYMPHOCYTES % (AUTO) 23 % (12-44); MEAN CORPUSCULAR HEMOGLOBIN 32 pg (25-34); MEAN CORPUSCULAR HGB CONC 33 g/dL (32-36); MEAN CORPUSCULAR VOLUME 95 fL (80-99); MEAN PLATELET VOLUME 11.5 fL (9.0-12.2); MONOCYTES # (AUTO) 0.7 10^3/uL (0.0-1.0); MONOCYTES % (AUTO) 11 % (0-12); NEUTROPHILS # (AUTO) 3.9 10^3/uL (1.8-7.8); NEUTROPHILS % (AUTO) 65 % (42-75); PLATELET COUNT 147 10^3/uL (130-400); WHITE BLOOD COUNT 6.1 10^3/uL (4.3-11.0)
[2023-05-08 05:59] LABS: ALBUMIN 3.1 GM/DL (3.2-4.5); BILIRUBIN,TOTAL 0.7 MG/DL (0.1-1.0); CALCIUM 8.4 MG/DL (8.5-10.1); CREATININE SERUM 0.97 MG/DL (0.60-1.30); POTASSIUM 3.9 MMOL/L (3.6-5.0); TOTAL PROTEIN 5.3 GM/DL (6.4-8.2)
[2023-05-08 07:54] VITALS: BP 170/80
[2023-05-08] MEDS ORDERED: ROSUVASTATIN 20 MG (CRESTOR) TABLET PO SCH (09:00)
--- NOTE | 2023-05-08 09:12 | Occupational Therapy Eval ---
OT Evaluation-General/PLF Medical Diagnosis Admission Date May 07, 2023 at 03:00 Medical Diagnosis: fall Onset Date: May 08, 2023 Therapy Diagnosis Therapy Diagnosis: weakness Precautions Precautions/Isolations: Fall Prevention Weight Bear Status Weight Bearing Restriction: Weight Bearing/Tolerated Referral Referral Reason: Activity Tolerance, Self Care, Evaluation/Treatment Medical History Additional Medical History 87yoWM clinic patient of Dr Olea who has a h/o HTN and HLP who presented to the [facility] ER with severe leg weakness and unable to ambulate and multiple recent falls. He reports he has had a lot of falls in the past couple of years and now walks with a walker continuously. Social History Home: Single Level Current Living Status: Spouse Entry Into Home: Stairs With Railing Steps Into Home: 4 ADL-Prior Level of Function SCALE: Activities may be completed with or without assistive devices. 9-Lhhkldovud-efywfny completes the activity by him/herself with no assistance from a helper. 5-Set-up or Clean-up Assistance-helper sets up or cleans up; patient completes activity. [place] assists only prior to or following the activity. 4-Supervision or Touching Assistance-helper provides verbal cues and/or touching/steadying and/or contact guard assistance as patient completes activity. Assistance may be provided throughout the activity or intermittently. 3-Partial/Moderate Assistance-helper does LESS THAN HALF the effort. [place] lifts, holds or supports trunk or limbs, but provides less than half the effort. 2-Substantial/Maximal Assistance-helper does MORE THAN HALF the effort. [place] lifts or holds trunk or limbs and provides more than half the effort. 7-Mvtxhhmar-nxnhte does ALL the effort. Patient does none of the effort to complete the activity. Or, the assistance of 2 or more helpers is required for the patient to complete the activity. If activity was not attempted, code reason: 7-Patient Refused. 9-Not Applicable-not attempted and the patient did not perform the activity before the current illness, exacerbation or injury. 10-Not Attempted due to Environmental Limitations-(lack of equipment, weather restraints, etc.). 88-Not Attempted due to Medical Conditions or Safety Concerns. Self Care: Independent Functional Cognition: Independent DME/Equipment: Grab Bars, Shower, Tall Toilet DME/Equipment Comments 4ww, drives, patient has frequent falls at home Drive Self: No OT Current Status Subjective On arrival, patient is standing in bathroom shaving w/ PCT w/ FWW but no gait belt Mental Status/Objective Patient Orientation: Person, Place, Time, Situation Current Glasses/Contacts: Yes Hearing Aids: Yes Dentures/Partials: No Hand Dominance: Right Upper Extremity ROM WFLS Upper Extremity Coordination IMPAIRED Upper Extremity Strength -4/5 ADL-Treatment Eating (QC): 6 Oral Hygiene (QC): 6 Shower/Bathe Self (QC): 7 Upper Body Dressing (QC): 5 Lower Body Dressing (QC): 4 On/Off Footwear (QC): 4 Toileting Hygiene (QC): 4 Education OT Patient Education: Correct positioning, Modified ADL techniques, Progress toward Goal/Update tx plan, Purpose of tx/functional activities, Reviewed precautions, Rehab process, Safety issues, Transfer techniques, Use of adapted equipment Teaching Recipient: Patient, Significant Other Response to Teaching: Verbalize Understanding OT Fci Goals Fci Goals Eating (QC): 6 Oral Hygiene (QC): 6 Toileting Hygiene (QC): 6 Shower/Bathe Self (QC): 6 Upper Body Dressing (QC): 6 Lower Body Dressing (QC): 6 On/Off Footwear (QC): 6 1=Demonstrate adherence to instructed precautions during ADL tasks. 2=Patient will verbalize/demonstrate understanding of assistive devices/modifications for ADL. 3=Patient will improve strength/tolerance for activity to enable patient to perform ADL's. OT Education/Plan Problem List/Assessment Assessment: Decreased Activ Tolerance, Decreased UE Strength, Impaired Cognition, Impaired Coordination, Impaired Funct Balance, Impaired Self-Care Skills Discharge Recommendations Plan/Recommendations: Continue POC Treatment Plan/Plan of Care Treatment,Training & Education: Yes Patient would benefit from OT for education, treatment and training to promote independence in ADL's, mobility, safety and/or upper extremity function for ADL's. Plan of Care: ADL Retraining, Functional Mobility, Group Exercise/Act as Ind, UE Funct Exercise/Act, UE Neuromus Re-Ed/Coord Treatment Duration: May 12, 2023 Frequency: 3 times per week (3-5 times per week) Estimated Hrs Per Day: .25 hour per day Agreement: Yes Rehab Potential: Guarded Time Start Time: 09:03 Stop Time: 09:16 DATE: May 08, 2023 Total Time Billed (hr/min): 13 Billed Treatment Time EVM 13 SO SU OT May 08, 2023 09:12
[2023-05-08] MEDS: DOCUSATE SODIUM 100 MG (COLACE) CAP PO SCH (09:43)
[2023-05-08] MEDS: amLODIPine 5 MG (NORVASC) TAB PO SCH (09:43)
[2023-05-08] MEDS: ENOXAPARIN 40 MG/0.4 ML (LOVENOX) SYR SC SCH (09:43)
[2023-05-08] MEDS: VALSARTAN 80 MG (DIOVAN) TAB PO SCH (09:43)
[2023-05-08] MEDS: SENNOSIDES 8.6 MG (SENOKOT) TAB PO SCH (09:43)
--- NOTE | 2023-05-08 09:54 | Physical Therapy Evaluation ---
PT Evaluation-General Medical Diagnosis Admission Date May 07, 2023 at 03:00 Medical Diagnosis: dehydration/elevated BP Onset Date: May 08, 2023 Therapy Diagnosis Therapy Diagnosis: debility/weakness Precautions Precautions/Isolations: Fall Prevention Referral Physician: Deni Reason for Referral: Evaluation/Treatment Medical History Pertinent Medical History: HTN Current History EMS secondary to weakness Reviewed History: Yes Social History Home: Single Level Current Living Status: Spouse Entry Into Home: Stairs With Railing PT Steps Into Home: 4 Prior Prior Level of Function SCALE: Activities may be completed with or without assistive devices. 3-Kighstyfmu-spwmwtx completes the activity by him/herself with no assistance from a helper. 5-Set-up or Clean-up Assistance-helper sets up or cleans up; patient completes activity. [place] assists only prior to or following the activity. 4-Supervision or Touching Assistance-helper provides verbal cues and/or brielle rupal/steadying and/or contact guard assistance as patient completes activity. Assistance may be provided throughout the activity or intermittently. 3-Partial/Moderate Assistance-helper does LESS THAN HALF the effort. [place] lifts, holds or supports trunk or limbs, but provides less than half the effort. 2-Substantial/Maximal Assistance-helper does MORE THAN HALF the effort. [place] lifts or holds trunk or limbs and provides more than half the effort. 3-Exethvbax-sctniy does ALL the effort. Patient does none of the effort to complete the activity. Or, the assistance of 2 or more helpers is required for the patient to complete the activity. If activity was not attempted, code reason: 7-Patient Refused. 9-Not Applicable-not attempted and the patient did not perform the activity before the current illness, exacerbation or injury. 10-Not Attempted due to Environmental Limitations-(lack of equipment, weather restraints, etc.). 88-Not Attempted due to Medical Conditions or Safety Concerns. Bed Mobility: 6 Transfers (B,C,W/C): 6 Gait: 6 Stairs: 6 Indoor Mobility (Ambulation): Independent Stairs: Independent Prior Devices Use: Walker PT Evaluation-Current Subjective Patient agrees to therapy. Objective Patient Orientation: Normal For Age ROM/Strength ROM Lower Extremities bilateral LE WFL Strength Lower Extremities 3+/5 bilateral LE grossly Integumentary/Posture Bowel Incontinence: No Bladder Incontinence: No Posture WFL Neuromuscular (Tone, Coordination, Reflexes) diminished coordination/ataxic Sensory Vision: Wears Glasses Hearing: Hearing Aid/Aides Hand Dominance: Right Transfers Sit to Stand (QC): 3 Chair/Rtm-xu-Yvquw Xfer(QC): 3 Gait Mode of Locomotion: Walk Anticipated Mode of Locomotion: Walk Walk 10 feet (QC): 3 Walk 50 ft with 2 Turns(QC): 3 Walk 150 ft (QC): 3 Distance: 225' Gait Assistive Device: FWW Comments/Gait Description WBOS/ataxic Balance Sitting Static: Normal Sitting Dynamic: Normal Standing Static: Fair Standing Dynamic: Fair (Fair-) Assessment/Needs Patient reports multiple falls for the past several years and has been receiving outpatient PT . Patient will benefit from skilled PT to address functional strength and mobility to improve current LOF. Rehab Potential: Fair PT Director Of Manufacturing Operations Goals Director Of Manufacturing Operations Goals PT Director Of Manufacturing Operations Goals Time Frame: May 20, 2023 Roll Left & Right (QC): 6 Sit to Lying (QC): 6 Lying-Sitting on Side/Bed(QC): 6 Sit to Stand (QC): 4 Chair/Ivu-hh-Dthfu Xfer(QC): 4 Toilet Transfer (QC): 4 Walk 10 feet (QC): 4 Walk 50ft with 2 Turns (QC): 4 Walk 150 ft (QC): 4 PT Plan Problem List Problem List: Activity Tolerance, Functional Strength, Safety, Balance, Gait, Transfer Treatment/Plan Treatment Plan: Continue Plan of Care Treatment Plan: Education, Functional Activity [place], Functional Strength, Gait, Safety, Therapeutic Exercise, Transfers Treatment Duration: May 20, 2023 Frequency: 6 times per week Estimated Hrs Per Day: .25 hour per day Patient and/or Family Agrees t: Yes Time Time In: 908 Time Out: 919 DATE: May 08, 2023 Total Billed Treatment Time: 11 [facility] May 08, 2023 09:54
[2023-05-08] MEDS ORDERED: VALS40TA9 PO (10:07)
[2023-05-08] MEDS ORDERED: ASPI-1238 PO (10:08)
[2023-05-08] MEDS ORDERED: MULT-1136 PO (10:08)
[2023-05-08] MEDS ORDERED: MAGN400T39 PO (10:09)
--- NOTE | 2023-05-08 10:15 | Progress Note ---
Subjective Date Seen by a Provider: May 08, 2023 Time Seen by a Provider: 10:15 Objective Exam Last Set of Vital Signs Vital Signs Date Time Temp Pulse Resp B/P (MAP) Pulse Ox O2 Delivery O2 Flow Rate FiO2 05/08/23 07:54 36.4 64 18 170/80 (110) Room Air 05/08/23 04:06 97 Capillary Refill : Less Than 3 Seconds I&O Intake and Output 05/08/23 00:00 Intake Total 2680 ml Output Total 975 ml Balance 1705 ml Intake Oral 1680 ml IV Total 1000 ml Output Urine Total 975 ml # Voids 1 Daily Weight Change No Results Lab Laboratory Tests 05/08/23 05:25: White Blood Count 6.1, Red Blood Count 4.40, Hemoglobin 13.9, Hematocrit 42, Mean Corpuscular Volume 95, Mean Corpuscular Hemoglobin 32, Mean Corpuscular Hemoglobin Concent 33, Red Cell Distribution Width 14.2, Platelet Count 147, Mean Platelet Volume 11.5, Immature Granulocyte % (Auto) 0, Neutrophils (%) (Auto) 65, Lymphocytes (%) (Auto) 23, Monocytes (%) (Auto) 11, Eosinophils (%) (Auto) 2, Basophils (%) (Auto) 1, Neutrophils # (Auto) 3.9, Lymphocytes # (Auto) 1.4, Monocytes # (Auto) 0.7, Eosinophils # (Auto) 0.1, Basophils # (Auto) 0.0, Immature Granulocyte # (Auto) 0.0, Sodium Level 140, Potassium Level 3.9, Chloride Level 109H, Carbon Dioxide Level 24, Anion Gap 7, Blood Urea Nitrogen 12, Creatinine 0.97, Estimat Glomerular Filtration Rate 76, BUN/Creatinine Ratio 12, Glucose Level 86, Calcium Level 8.4L, Corrected Calcium 9.1, Total Bilirubin 0.7, Aspartate Amino Transf (AST/SGOT) 21, Alanine Aminotransferase (ALT/SGPT) 17, Alkaline Phosphatase 63, Total Protein 5.3L, Albumin 3.1L Clinical Quality Measures AMI/AHF: ASA po Prior to arrival: Yes (81) BENITA SAPP DO May 08, 2023 10:15
[2023-05-08] MEDS ORDERED: AMLO-250 PO (11:00)
--- NOTE | 2023-05-08 11:00 | Discharge Summary ---
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/2022 Hypertension [id number] Discharge Summary Discharge Physical Examination Allergies: Coded Allergies: No Known Drug Allergies (Unverified , 02/05/21) Vitals & I&Os Vital Signs Date Time Temp Pulse Resp B/P (MAP) Pulse Ox O2 Delivery O2 Flow Rate FiO2 05/08/23 11:30 36.5 69 18 147/70 (95) 94 Room Air General Appearance: Alert, Oriented X3, Cooperative Respiratory: Clear to Auscultation Cardiovascular: Regular Rate Psych/Mental Status: Mental Status NL Hospital Course Was the Problem List Reviewed?: Yes Patient had an uneventful hospital course after he was admitted for bilateral lower extremity weakness unable to ambulate. Hypertension [id number] was also noted so added meds. PT and OT saw patient and evaluated neurological cause and I did review MRIs of the spine 06/2022 which revealed severe spinal stenosis and degenerative disc disease. All inflammatory markers were negative no signs of sepsis and I did speak with primary care provider Dr. Olea who agreed with the spinal disease and spinal stenosis causing the inability to walk normally and multiple falls and he will see him in close follow-up and outpatient physical therapy will be ordered. Labs (last 24 hrs) Laboratory Tests 05/06/23 21:38: White Blood Count 10.0, Red Blood Count 4.80, Hemoglobin 15.2, Hematocrit 46, Mean Corpuscular Volume 96, Mean Corpuscular Hemoglobin 32, Mean Corpuscular Hemoglobin Concent 33, Red Cell Distribution Width 14.1, Platelet Count 182, Mean Platelet Volume 11.7, Immature Granulocyte % (Auto) 0, Neutrophils (%) (Auto) 77H, Lymphocytes (%) (Auto) 15, Monocytes (%) (Auto) 7, Eosinophils (%) (Auto) 0, Basophils (%) (Auto) 0, Neutrophils # (Auto) 7.7, Lymphocytes # (Auto) 1.5, Monocytes # (Auto) 0.7, Eosinophils # (Auto) 0.0, Basophils # (Auto) 0.0, Immature Granulocyte # (Auto) 0.0, Prothrombin Time 13.8, INR Comment 1.0, Activated Partial Thromboplast Time 29, Sodium Level 141, Potassium Level 4.0, Chloride Level 103, Carbon Dioxide Level 27, Anion Gap 11, Blood Urea Nitrogen 20H, Creatinine 1.33H, Estimat Glomerular Filtration Rate 52, BUN/Creatinine Ratio 15, Glucose Level 110H, Calcium Level 10.0, Corrected Calcium 10.2H, Magnesium Level 2.2, Total Bilirubin 0.4, Aspartate Amino Transf (AST/SGOT) 23, Alanine Aminotransferase (ALT/SGPT) 18, Alkaline Phosphatase 82, Troponin I < 0.30, Pro-B-Type Natriuretic Peptide 59.8, Total Protein 6.5, Albumin 3.8 05/06/23 22:30: Urine Color YELLOW, Urine Clarity CLEAR, Urine pH 7.5, Urine Specific [place] 1.010L, Urine Protein NEGATIVE, Urine Glucose (UA) NEGATIVE, Urine Ketones NEGATIVE, Urine Nitrite NEGATIVE, Urine Bilirubin NEGATIVE, Urine Urobilinogen 0.2, Urine Leukocyte Esterase NEGATIVE, Urine RBC (Auto) TRACE-IH, Urine RBC 2- 5H, Urine WBC 0-2, Urine Crystals PRESENTH, Urine Calcium Oxalate Crystals FEWH, Urine Bacteria FEWH, Urine Casts NONE, Urine Mucus MODERATEH, Urine Culture Indicated NO 05/07/23 05:08: White Blood Count 7.4, Red Blood Count 4.41, Hemoglobin 14.1, Hematocrit 42, Mean Corpuscular Volume 95, Mean Corpuscular Hemoglobin 32, Mean Corpuscular Hemoglobin Concent 34, Red Cell Distribution Width 13.9, Platelet Count 174, Mean Platelet Volume 12.2, Immature Granulocyte % (Auto) 0, Neutrophils (%) (Auto) 71, Lymphocytes (%) (Auto) 17, Monocytes (%) (Auto) 11, Eosinophils (%) (Auto) 1, Basophils (%) (Auto) 0, Neutrophils # (Auto) 5.3, Lymphocytes # (Auto) 1.2, Monocytes # (Auto) 0.8, Eosinophils # (Auto) 0.1, Basophils # (Auto) 0.0, Immature Granulocyte # (Auto) 0.0, Sodium Level 141, Potassium Level 3.3L, Chloride Level 109H, Carbon Dioxide Level 24, Anion Gap 8, Blood Urea Nitrogen 15, Creatinine 0.94, Estimat Glomerular Filtration Rate 79, BUN/Creatinine Ratio 16, Glucose Level 99, Calcium Level 8.6, Erythrocyte Sedimentation Rate 4, Total Creatine Kinase 137, C-Reactive Protein High Sensitivity 0.13, Thyroid Stimulating Hormone (TSH) 2.00 05/07/23 05:10: Vitamin B12 Level 797 05/08/23 05:25: White Blood Count 6.1, Red Blood Count 4.40, Hemoglobin 13.9, Hematocrit 42, Mean Corpuscular Volume 95, Mean Corpuscular Hemoglobin 32, Mean Corpuscular Hemoglobin Concent 33, Red Cell Distribution Width 14.2, Platelet Count 147, Mean Platelet Volume 11.5, Immature Granulocyte % (Auto) 0, Neutrophils (%) (Auto) 65, Lymphocytes (%) (Auto) 23, Monocytes (%) (Auto) 11, Eosinophils (%) (Auto) 2, Basophils (%) (Auto) 1, Neutrophils # (Auto) 3.9, Lymphocytes # (Auto) 1.4, Monocytes # (Auto) 0.7, Eosinophils # (Auto) 0.1, Basophils # (Auto) 0.0, Immature Granulocyte # (Auto) 0.0, Sodium Level 140, Potassium Level 3.9, Chloride Level 109H, Carbon Dioxide Level 24, Anion Gap 7, Blood Urea Nitrogen 12, Creatinine 0.97, Estimat Glomerular Filtration Rate 76, BUN/Creatinine Ratio 12, Glucose Level 86, Calcium Level 8.4L, Corrected Calcium 9.1, Total Bilirubin 0.7, Aspartate Amino Transf (AST/SGOT) 21, Alanine Aminotransferase (ALT/SGPT) 17, Alkaline Phosphatase 63, Total Protein 5.3L, Albumin 3.1L Pending Labs Laboratory Tests 05/06/23 21:38: White Blood Count 10.0, Red Blood Count 4.80, Hemoglobin 15.2, Hematocrit 46, Mean Corpuscular Volume 96, Mean Corpuscular Hemoglobin 32, Mean Corpuscular Hemoglobin Concent 33, Red Cell Distribution Width 14.1, Platelet Count 182, Mean Platelet Volume 11.7, Immature Granulocyte % (Auto) 0, Neutrophils (%) (Auto) 77, Lymphocytes (%) (Auto) 15, Monocytes (%) (Auto) 7, Eosinophils (%) (Auto) 0, Basophils (%) (Auto) 0, Neutrophils # (Auto) 7.7, Lymphocytes # (Auto) 1.5, Monocytes # (Auto) 0.7, Eosinophils # (Auto) 0.0, Basophils # (Auto) 0.0, Immature Granulocyte # (Auto) 0.0, Prothrombin Time 13.8, INR Comment 1.0, Activated Partial Thromboplast Time 29, Sodium Level 141, Potassium Level 4.0, Chloride Level 103, Carbon Dioxide Level 27, Anion Gap 11, Blood Urea Nitrogen 20, Creatinine 1.33, Estimat Glomerular Filtration Rate 52, BUN/Creatinine Ratio 15, Glucose Level 110, Calcium Level 10.0, Corrected Calcium 10.2, Magnesium Level 2.2, Total Bilirubin 0.4, Aspartate Amino Transf (AST/SGOT) 23, Alanine Aminotransferase (ALT/SGPT) 18, Alkaline Phosphatase 82, Troponin I < 0.30, Pro-B-Type Natriuretic Peptide 59.8, Total Protein 6.5, Albumin 3.8 05/06/23 22:30: Urine Color YELLOW, Urine Clarity CLEAR, Urine pH 7.5, Urine Specific [place] 1.010, Urine Protein NEGATIVE, Urine Glucose (UA) NEGATIVE, Urine Ketones NEGATIVE, Urine Nitrite NEGATIVE, Urine Bilirubin NEGATIVE, Urine Urobilinogen 0.2, Urine Leukocyte Esterase NEGATIVE, Urine RBC (Auto) TRACE-I, Urine RBC 2-5, Urine WBC 0-2, Urine Crystals PRESENT, Urine Calcium Oxalate Crystals FEW, Urine Bacteria FEW, Urine Casts NONE, Urine Mucus MODERATE, Urine Culture Indicated NO 05/07/23 05:08: White Blood Count 7.4, Red Blood Count 4.41, Hemoglobin 14.1, Hematocrit 42, Mean Corpuscular Volume 95, Mean Corpuscular Hemoglobin 32, Mean Corpuscular Hemoglobin Concent 34, Red Cell Distribution Width 13.9, Platelet Count 174, Mean Platelet Volume 12.2, Immature Granulocyte % (Auto) 0, Neutrophils (%) (Auto) 71, Lymphocytes (%) (Auto) 17, Monocytes (%) (Auto) 11, Eosinophils (%) (Auto) 1, Basophils (%) (Auto) 0, Neutrophils # (Auto) 5.3, Lymphocytes # (Auto) 1.2, Monocytes # (Auto) 0.8, Eosinophils # (Auto) 0.1, Basophils # (Auto) 0.0, Immature Granulocyte # (Auto) 0.0, Sodium Level 141, Potassium Level 3.3, Chloride Level 109, Carbon Dioxide Level 24, Anion Gap 8, Blood Urea Nitrogen 15, Creatinine 0.94, Estimat Glomerular Filtration Rate 79, BUN/Creatinine Ratio 16, Glucose Level 99, Calcium Level 8.6, Erythrocyte Sedimentation Rate 4, Total Creatine Kinase 137, C-Reactive Protein High Sensitivity 0.13, Thyroid Stimulating Hormone (TSH) 2.00 05/07/23 05:10: Vitamin B12 Level 797 05/08/23 05:25: White Blood Count 6.1, Red Blood Count 4.40, Hemoglobin 13.9, Hematocrit 42, Mean Corpuscular Volume 95, Mean Corpuscular Hemoglobin 32, Mean Corpuscular Hemoglobin Concent 33, Red Cell Distribution Width 14.2, Platelet Count 147, Mean Platelet Volume 11.5, Immature Granulocyte % (Auto) 0, Neutrophils (%) (Auto) 65, Lymphocytes (%) (Auto) 23, Monocytes (%) (Auto) 11, Eosinophils (%) (Auto) 2, Basophils (%) (Auto) 1, Neutrophils # (Auto) 3.9, Lymphocytes # (Auto) 1.4, Monocytes # (Auto) 0.7, Eosinophils # (Auto) 0.1, Basophils # (Auto) 0.0, Immature Granulocyte # (Auto) 0.0, Sodium Level 140, Potassium Level 3.9, Chloride Level 109, Carbon Dioxide Level 24, Anion Gap 7, Blood Urea Nitrogen 12, Creatinine 0.97, Estimat Glomerular Filtration Rate 76, BUN/Creatinine Ratio 12, Glucose Level 86, Calcium Level 8.4, Corrected Calcium 9.1, Total Bilirubin 0.7, Aspartate Amino Transf (AST/SGOT) 21, Alanine Aminotransferase (ALT/SGPT) 17, Alkaline Phosphatase 63, Total Protein 5.3, Albumin 3.1 Discharge Home Medications: Active Scripts Active Amlodipine Besylate 5 Mg Tablet 5 Mg PO DAILY Reported Magnesium (Magnesium Oxide) 400 Mg Magnesium Tablet 400 Mg PO HS Multivitamin 1 Each Tablet 1 Each PO BID Aspirin EC (Aspirin) 81 Mg Tablet.dr 81 Mg PO HS Valsartan 40 Mg Tablet 20 Mg PO BID TAKES 1/2 OF (40MG) TAB Rosuvastatin Calcium 20 Mg Tablet 20 Mg PO DAILY Furosemide 20 Mg Tablet 20 Mg PO DAILY Instructions to patient/family Please see electronic discharge instructions given to patient. Clinical Quality Measures AMI/AHF: ASA po Prior to arrival: Yes (81) BENITA SAPP DO May 08, 2023 11:00
[2023-05-08 11:30] VITALS: BP 147/70
== END 2023-05-08 12:25 | disposition home or self-care (01) ==
LOC: EDUNIT# 21:30 → ER FS 21:32 → 4TH 05-07 03:00
PROVIDERS: ADMIT Internal Medicine; ATTEND Internal Medicine
DX: M62.81 Muscle weakness (generalized) (principal); R29.6 Repeated falls; M48.00 Spinal stenosis, site unspecified; M48.9 Spondylopathy, unspecified; E86.0 Dehydration; I10 Essential (primary) hypertension; R41.81 Age-related cognitive decline; R60.9 Edema, unspecified; Z28.310 Unvaccinated for COVID-19
CPT/HCPCS: 36415; 80048; 80053 ×2; 81000; 82550; 82607; 83735; 83880; 84443; 84484; 85025 ×3; 85610; 85652; 85730; 86141; 93005; 93041; 96372 ×2; 97162; 97166; 99284; G0378

== ENCOUNTER → 2023-08-14 | Outpatient (CLI) | payer MEDICARE, OTHER ==
[~2023-08-14] MED LIST changes: +AMLO-250 PO; +ASPI-1238 PO; +FURO20TA4 PO; +MAGN400T39 PO; +MULT-1136 PO; +ROSU20TA73 PO; +VALS40TA9 PO
== END ==
LOC: CARD 09:30
PROVIDERS: ATTEND Internal Medicine Cardiovascular Disease
DX: I34.0 Nonrheumatic mitral (valve) insufficiency (principal); I77.810 Thoracic aortic ectasia
CPT/HCPCS: 93306